=== PATIENT | female | born 1955 | race Caucasian/White ===

== ENCOUNTER → 2018-07-21 | Outpatient (REF) | payer MEDICARE ==
[~2018-07-21] MED LIST: ALBUTEROL S2.5 MG/.5 IN; ASPIRIN LOW DOS81 M2 PO; CARVEDILOL6.25 MG PO; COREG12.5 MG PO; COREG6.25 MG PO; CRESTOR20 MG PO; HYDROCO/APAP1 TA9 PO; HYDROCODONE/ACE1 TA7 PO; IMODIUM A-D2 M2 PO; LASIX 40 MG40 MG/TAB PO; LIPITOR10 MG PO; LIPITOR40 M1 PO; LIPITOR80 MG PO; LISINOPRIL10 MG PO; LORTAB 5-325 MG1 TAB PO; LORTAB 5/3255 MG PO; Levaquin PO; MAGNESIUM-OX400 MG PO; MICRO-K10 ME1 PO; NAPROSYN500 MG PO; NAPROXEN250 MG PO; NEBULIZE1 XX; PEPCID20 MG OR; POT CHLORIDE10 ME1 PO; PREDNISONE20 MG OR; PREDNISONE20 MG PO; PREVPAC PO; PROTONIX40 MG PO; ROBITUSSIN AC10 ML PO; SPIRONOLACT25 MG PO; SPIRONOLACTONE25 MG PO; TIZANIDINE2 MG PO; ULTRAM50 MG PO; ZESTRIL/PRINIV2.5 MG PO; ZPAK PO
[2018-07-21 08:25] LABS: HEMATOCRIT 37.3 % (37.0-47.0); HEMOGLOBIN 11.3 g/dl (12.0-16.0); IMMATURE GRANULOCYTES 0.9 % (0.0-5.0); MEAN CELL VOLUME 88.6 fL CALC (80.0-100.0); MEAN CORPUSCULAR HGB 26.8 pG CALC (26.0-32.0); MEAN CORPUSCULAR HGB CONC 30.3 g/L CALC (32.0-36.0); NEUT# 7.02 thou/uL (2.00-7.15); RED BLOOD COUNT 4.21 mill/uL (4.20-5.60); RED CELL DISTRI WIDTH 15.9 % (11.5-15.5)
[2018-07-21 08:37] LABS: ALBUMIN 3.8 g/dL (3.2-5.0); BILIRUBIN, TOTAL 0.6 mg/dL (0.0-1.4); CHOLESTEROL HDL RATIO 3.1 (<4.4 (CALC)); CREATININE 1.2 mg/dL (0.5-1.0); TOTAL PROTEIN 6.9 g/dL (6.3-8.2)
[2018-07-21 08:44] LABS: POTASSIUM 5.6 mmol/l (3.5-5.1)
== END | disposition home or self-care (01) ==
LOC: LAB 07:01
PROVIDERS: ATTEND Internal Medicine Geriatric Medicine
DX: E78.2 Mixed hyperlipidemia (principal); I10 Essential (primary) hypertension

== ENCOUNTER 2021-12-27 10:59 | Emergency (ER) | payer MEDICARE ==
[~2021-12-27] VITALS: Ht 149.9 cm; Wt 79.0 kg
[2021-12-27 12:29] LABS: HEMATOCRIT 43.9 % (37.0-47.0); HEMOGLOBIN 13.7 g/dl (12.0-16.0); IMMATURE GRANULOCYTES 0.3 % (0.0-5.0); MEAN CELL VOLUME 86.9 fL CALC (80.0-100.0); MEAN CORPUSCULAR HGB 27.1 pG CALC (26.0-32.0); MEAN CORPUSCULAR HGB CONC 31.2 g/dL CAL (32.0-36.0); NEUT# 9.11 thou/uL (2.00-7.15); RED BLOOD COUNT 5.05 mill/uL (4.20-5.60); RED CELL DISTRI WIDTH 15.6 % (11.5-15.5)
[2021-12-27] MEDS ORDERED: TRAMADOL HYDROC50 M1 PO (12:33)
[2021-12-27 12:37] LABS: ALBUMIN 4.2 g/dL (3.2-5.0); ALKALINE PHOSPHATASE 91 u/l (38-126); ANION GAP 11 (6-22 (CALC)); BILIRUBIN, TOTAL 0.8 mg/dL (0.0-1.4); BUN 16 mg/dL (8-23); BUN/CREATININE RATIO 20 (12-20 (CALC)); CARBON DIOXIDE 31 mmol/l (22-30); CHLORIDE 103 mmol/l (95-108); CREATININE 0.8 mg/dL (0.5-1.0); GFR FOR AFR.AMER. > 60 ML/MIN (>=60 (CALC)); GFR OTHER RACES > 60 ML/MIN (>=60 (CALC)); POTASSIUM 4.6 mmol/l (3.5-5.1); SGOT/AST 18 u/l (9-36); SODIUM 140 mmol/l (137-146); TOTAL PROTEIN 7.4 g/dL (6.3-8.2)
[2021-12-27] MEDS ORDERED: OMNI-PAC300 MG PO (12:50)
[2021-12-27] MEDS ORDERED: BACTRIM DS1 TAB PO (12:50)
[2021-12-27 13:03] VITALS: BP 136/45
== END 2021-12-27 13:07 | disposition home or self-care (01) ==
LOC: ED 10:59
PROVIDERS: Family Medicine
DX: L03.113 Cellulitis of right upper limb (principal); I10 Essential (primary) hypertension; F17.200 Nicotine dependence, unspecified, uncomplicated

== ENCOUNTER 2022-02-11 12:57 | Inpatient (IN) | payer MEDICARE ==
[2022-02-11] VITALS (18 sets, daily range): BP systolic 104–173; BP diastolic 53–102
[~2022-02-11] VITALS: Ht 149.9 cm; Wt 75.4 kg
[~2022-02-11 12:57] MED LIST changes: +BACTRIM DS1 TAB PO; +OMNI-PAC300 MG PO; +TRAMADOL HYDROC50 M1 PO
[2022-02-11 13:25] LABS: IMMATURE GRANULOCYTES 0.5 % (0.0-5.0); MEAN CELL VOLUME 85.6 fL CALC (80.0-100.0); MEAN CORPUSCULAR HGB 27.1 pG CALC (26.0-32.0); MEAN CORPUSCULAR HGB CONC 31.6 g/dL CAL (32.0-36.0); NEUT# 6.32 thou/uL (2.00-7.15); RED BLOOD COUNT 3.69 mill/uL (4.20-5.60); RED CELL DISTRI WIDTH 16.3 % (11.5-15.5)
[2022-02-11 13:27] LABS: HEMATOCRIT 31.6 % (37.0-47.0)
[2022-02-11 13:38] LABS: ALBUMIN 3.9 g/dL (3.2-5.0); ALKALINE PHOSPHATASE 83 u/l (38-126); ANION GAP 11 (6-22 (CALC)); BILIRUBIN, TOTAL 0.6 mg/dL (0.0-1.4); BUN 14 mg/dL (8-23); BUN/CREATININE RATIO 18 (12-20 (CALC)); CARBON DIOXIDE 31 mmol/l (22-30); CHLORIDE 101 mmol/l (95-108); CREATININE 0.8 mg/dL (0.5-1.0); GFR FOR AFR.AMER. > 60 ML/MIN (>=60 (CALC)); GFR OTHER RACES > 60 ML/MIN (>=60 (CALC)); POTASSIUM 3.6 mmol/l (3.5-5.1); SGOT/AST 31 u/l (9-36); SODIUM 139 mmol/l (137-146)
[2022-02-11] MEDS ORDERED: LOPRESSOR50 M1 PO (13:43)
[2022-02-11] MEDS ORDERED: ISOSORB MONO30 MG PO (13:44)
[2022-02-11] MEDS ORDERED: CLOPIDOGREL75 MG PO (13:44)
[2022-02-11 13:45] LABS: INTERNATIONAL NORMALIZED RATIO 1.1 RATIO (0.7-1.3)
[2022-02-11] MEDS ORDERED: CALTRATE 600+D1 CHW PO (13:45)
[2022-02-11] MEDS ORDERED: LISINOPRIL10 MG PO (13:45)
[2022-02-11] MEDS ORDERED: MAGNESIUM 400 M1 TAB PO (13:46)
[2022-02-11 13:50] LABS: MYOGLOBIN 229 ng/mL (0 - 62)
[2022-02-11 13:52] LABS: D-DIMER 0.66 mg/L (0.19-0.60)
[2022-02-11 20:12] LABS: URINE BILIRUBIN - DIPSTICK NEGATIVE (NEGATIVE); URINE BLOOD DIPSTICK TRACE-INTACT (NEGATIVE); URINE COLOR YELLOW; URINE GLUCOSE - DIPSTICK NEGATIVE (NEGATIVE); URINE KETONE NEGATIVE (NEGATIVE); URINE LEUK ESTERASE NEGATIVE (NEGATIVE); URINE PROTEIN - DIPSTICK TRACE mg/dL (NEG-TRACE); URINE SPECIFIC GRAVITY 1.015; URINE UROBILINOGEN - DIPSTICK 0.2 E.U./dL (0.2)
[2022-02-11 20:13] LABS: URINE NITRITE - DIPSTICK NEGATIVE (Negative)
[2022-02-12] VITALS (49 sets, daily range): BP systolic 100–162; BP diastolic 48–129
[2022-02-12 05:23] LABS: HEMATOCRIT 30.7 % (37.0-47.0); HEMOGLOBIN 9.5 g/dl (12.0-16.0); IMMATURE GRANULOCYTES 0.4 % (0.0-5.0); MEAN CORPUSCULAR HGB 27.5 pG CALC (26.0-32.0); MEAN CORPUSCULAR HGB CONC 30.9 g/dL CAL (32.0-36.0); NEUT# 6.12 thou/uL (2.00-7.15); RED BLOOD COUNT 3.45 mill/uL (4.20-5.60); RED CELL DISTRI WIDTH 16.7 % (11.5-15.5)
[2022-02-12 05:36] LABS: ALBUMIN 3.8 g/dL (3.2-5.0); ALKALINE PHOSPHATASE 72 u/l (38-126); BILIRUBIN, TOTAL 0.4 mg/dL (0.0-1.4); BUN 13 mg/dL (8-23); BUN/CREATININE RATIO 17 (12-20 (CALC)); CARBON DIOXIDE 31 mmol/l (22-30); CHLORIDE 103 mmol/l (95-108); CREATININE 0.8 mg/dL (0.5-1.0); GFR FOR AFR.AMER. > 60 ML/MIN (>=60 (CALC)); GFR OTHER RACES > 60 ML/MIN (>=60 (CALC)); SGOT/AST 25 u/l (9-36); SODIUM 141 mmol/l (137-146); TOTAL PROTEIN 6.1 g/dL (6.3-8.2)
[2022-02-12 05:38] LABS: ANION GAP 11 (6-22 (CALC)); POTASSIUM 4.4 mmol/l (3.5-5.1)
[2022-02-13] VITALS: BP 117/51
== END 2022-02-13 00:35 | DRG 309 ==
LOC: ED 12:57 → ED-I 14:29 → ED 18:39 → ICU 18:40
PROVIDERS: Nurse Practitioner; ADMIT Internal Medicine; ATTEND Internal Medicine
DX: R00.1 Bradycardia, unspecified (principal); T82.7XXA Infection and inflammatory reaction due to other cardiac and vascular devices, implants and grafts, initial encounter; T36.8X5A Adverse effect of other systemic antibiotics, initial encounter; I11.0 Hypertensive heart disease with heart failure; I50.9 Heart failure, unspecified; I42.9 Cardiomyopathy, unspecified; J44.9 Chronic obstructive pulmonary disease, unspecified; I25.10 Atherosclerotic heart disease of native coronary artery without angina pectoris; E78.5 Hyperlipidemia, unspecified; Y83.1 Surgical operation with implant of artificial internal device as the cause of abnormal reaction of the patient, or of later complication, without mention of misadventure at the time of the procedure; Z95.5 Presence of coronary angioplasty implant and graft; Z95.1 Presence of aortocoronary bypass graft; Z87.891 Personal history of nicotine dependence; Z23 Encounter for immunization; Z95.0 Presence of cardiac pacemaker; T82.6XXD Infection and inflammatory reaction due to cardiac valve prosthesis, subsequent encounter; Z45.2 Encounter for adjustment and management of vascular access device
CPT/HCPCS: J2997; Q9967

== ENCOUNTER 2022-07-02 18:24 | Emergency (ER) | payer MEDICARE ==
[2022-07-02] VITALS (7 sets, daily range): BP systolic 109–156; BP diastolic 45–65
[~2022-07-02] VITALS: Ht 149.9 cm; Wt 70.0 kg
[~2022-07-02 18:24] MED LIST changes: +CALTRATE 600+D1 CHW PO; +CLOPIDOGREL75 MG PO; +ISOSORB MONO30 MG PO; +LOPRESSOR50 M1 PO; +MAGNESIUM 400 M1 TAB PO
[2022-07-02] MEDS ORDERED: SPIRONOLACTONE25 MG PO (18:59)
[2022-07-02] MEDS ORDERED: ENTRESTO 24-261 TAB PO (19:01)
[2022-07-02 19:13] LABS: BASO% 0.1 % (0-3); EOS% 2.1 % (0-8); HEMATOCRIT 40.3 % (37.0-47.0); IMMATURE GRANULOCYTES 1.7 % (0.0-5.0); LYMPH% 6.5 % (15-41); MEAN CELL VOLUME 82.1 fL CALC (80.0-100.0); MEAN CORPUSCULAR HGB 24.4 pG CALC (26.0-32.0); MEAN CORPUSCULAR HGB CONC 29.8 g/dL CAL (32.0-36.0); MONO% 6.5 % (2-13); NEUT# 8.16 thou/uL (2.00-7.15); NEUT% 83.1 % (42-76); RED BLOOD COUNT 4.91 mill/uL (4.20-5.60); RED CELL DISTRI WIDTH 15.9 % (11.5-15.5)
[2022-07-02 19:24] LABS: ALBUMIN 3.4 g/dL (3.2-5.0); ALKALINE PHOSPHATASE 88 u/l (38-126); ANION GAP 5 (6-22 (CALC)); BILIRUBIN, TOTAL 0.5 mg/dL (0.02-1.3); BUN 29 mg/dL (8-23); BUN/CREATININE RATIO 35 (12-20 (CALC)); CHLORIDE 99 mmol/l (95-108); CREATININE 0.8 mg/dL (0.5-1.0); GFR FOR AFR.AMER. > 60 ML/MIN (>=60 (CALC)); GFR OTHER RACES > 60 ML/MIN (>=60 (CALC)); LIPASE 302 u/l (23-300); SGOT/AST 23 u/l (9-36); SODIUM 139 mmol/l (137-146); TOTAL PROTEIN 6.1 g/dL (6.3-8.2)
[2022-07-02 19:29] LABS: CARBON DIOXIDE 39 mmol/l (22-30)
[2022-07-02 19:32] LABS: POTASSIUM 3.6 mmol/l (3.5-5.1)
[2022-07-02 19:35] LABS: ACT PARTIAL THROMBO TIME 21.6 SECONDS (20.0-32.5); PROTHROMBIN TIME 10.4 SECONDS (9.0-12.5)
[2022-07-02 19:57] LABS: D-DIMER 0.89 mg/L (0.19-0.60)
[2022-07-02] MEDS ORDERED: TAM75CAP PO (22:18)
== END 2022-07-02 22:34 | disposition home or self-care (01) ==
LOC: ED 18:24
PROVIDERS: Family Medicine
DX: J10.1 Influenza due to other identified influenza virus with other respiratory manifestations (principal); R07.89 Other chest pain; I11.0 Hypertensive heart disease with heart failure; I50.9 Heart failure, unspecified; I25.10 Atherosclerotic heart disease of native coronary artery without angina pectoris; E78.5 Hyperlipidemia, unspecified; Z99.81 Dependence on supplemental oxygen; Z79.82 Long term (current) use of aspirin; Z95.1 Presence of aortocoronary bypass graft; Z95.810 Presence of automatic (implantable) cardiac defibrillator; Z20.822 Contact with and (suspected) exposure to COVID-19
CPT/HCPCS: Q9967

== ENCOUNTER 2022-07-07 06:57 | Emergency (ER) | payer MEDICARE ==
[~2022-07-07] VITALS: Ht 149.9 cm; Wt 68.0 kg
[2022-07-07] VITALS (27 sets, daily range): BP systolic 78–135; BP diastolic 41–105
[~2022-07-07 06:57] MED LIST changes: +ENTRESTO 24-261 TAB PO; +TAM75CAP PO
[2022-07-07 08:39] LABS: BASO% 0.2 % (0-3); HEMATOCRIT 36.9 % (37.0-47.0); HEMOGLOBIN 10.5 g/dl (12.0-16.0); IMMATURE GRANULOCYTES 0.9 % (0.0-5.0); LYMPH% 2.2 % (15-41); MEAN CELL VOLUME 85.6 fL CALC (80.0-100.0); MEAN CORPUSCULAR HGB 24.4 pG CALC (26.0-32.0); MEAN CORPUSCULAR HGB CONC 28.5 g/dL CAL (32.0-36.0); MONO% 5.4 % (2-13); NEUT# 11.43 thou/uL (2.00-7.15); NEUT% 91.3 % (42-76); RED BLOOD COUNT 4.31 mill/uL (4.20-5.60); RED CELL DISTRI WIDTH 17.2 % (11.5-15.5)
[2022-07-07 08:52] LABS: ALBUMIN 3.6 g/dL (3.2-5.0); BILIRUBIN, TOTAL 0.8 mg/dL (0.02-1.3); CREATININE 1.2 mg/dL (0.5-1.0); POTASSIUM 4.6 mmol/l (3.5-5.1); TOTAL PROTEIN 6.7 g/dL (6.3-8.2)
[2022-07-07 08:58] LABS: INTERNATIONAL NORMALIZED RATIO 1.2 RATIO (0.7-1.3); PROTHROMBIN TIME 11.5 SECONDS (9.0-12.5)
[2022-07-07] MEDS ORDERED: COMBIVENT RESPIMAT IN (09:02)
[2022-07-07] MEDS ORDERED: INCRUSE EL62.5 MCG/I (09:03)
[2022-07-07] MEDS ORDERED: FARXIGA10 MG (09:03)
[2022-07-07] MEDS ORDERED: CALTRATE 603 PO (09:04)
[2022-07-07] MEDS ORDERED: ALENDRONATE SOD70 MG PO (09:04)
--- NOTE | 2022-07-07 11:23 | NUR ---
BIP[employer] PLACED STANDBY PER FAMILY REQUEST. PLACED ON 3L IN.
== END 2022-07-07 12:33 | disposition short-term general hospital (02) ==
LOC: ED 06:57
PROVIDERS: Family Medicine
PROC: 0T9B70Z Drainage of Bladder with Drainage Device, Via Natural or Artificial Opening (ICD-10-PCS; principal; 2022-07-07)
PROC: 5A09357 Assistance with Respiratory Ventilation, Less than 24 Consecutive Hours, Continuous Positive Airway Pressure (ICD-10-PCS; 2022-07-07)
PROC: 05HM33Z Insertion of Infusion Device into Right Internal Jugular Vein, Percutaneous Approach (ICD-10-PCS; 2022-07-07)
DX: A41.9 Sepsis, unspecified organism (principal); R65.21 Severe sepsis with septic shock; J96.00 Acute respiratory failure, unspecified whether with hypoxia or hypercapnia; J18.9 Pneumonia, unspecified organism; J44.0 Chronic obstructive pulmonary disease with (acute) lower respiratory infection; I11.0 Hypertensive heart disease with heart failure; I50.9 Heart failure, unspecified; E78.5 Hyperlipidemia, unspecified; I25.10 Atherosclerotic heart disease of native coronary artery without angina pectoris; Z66 Do not resuscitate; Z95.5 Presence of coronary angioplasty implant and graft; Z99.81 Dependence on supplemental oxygen; Z95.1 Presence of aortocoronary bypass graft; Z20.822 Contact with and (suspected) exposure to COVID-19